=== PATIENT | male | born 1990 | race Caucasian/White ===

== ENCOUNTER 2016-10-06 19:49 | Emergency (ER) | payer SELFPAY ==
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
[2016-10-06 20:27] VITALS: RESP 22; TEMP 97.5
== END 2016-10-06 20:16 ==
LOC: ER 19:49
DX: F19.10 Other psychoactive substance abuse, uncomplicated (principal); S60.511A Abrasion of right hand, initial encounter
CPT/HCPCS: 99282

== ENCOUNTER 2016-11-02 15:35 | Emergency (ER) | payer SELFPAY ==
[2016-11-02 16:41] VITALS: RESP 15; TEMP 97.8
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
== END 2016-11-02 17:17 ==
LOC: ER 15:35
DX: Z04.8 Encounter for examination and observation for other specified reasons (principal); F31.9 Bipolar disorder, unspecified
CPT/HCPCS: 90791; 99282